=== PATIENT | male | born 2000 | race African-American/Black ===

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

== ENCOUNTER 2025-05-29 19:10 | Emergency (ER) | payer OTHER ==
[2025-05-29 19:27] VITALS: BP 119/69; PULSE 52; RESP 19; TEMP 98.6; BMI 16.2
== END 2025-05-29 21:31 | disposition home or self-care (01) ==
LOC: JERFT 19:10
DX: M25.561 Pain in right knee (principal); M25.512 Pain in left shoulder; V87.7XXA Person injured in collision between other specified motor vehicles (traffic), initial encounter; Y92.410 Unspecified street and highway as the place of occurrence of the external cause
CPT/HCPCS: 73030-TC-LT-FY; 73562-TC-RT-FY